=== PATIENT | male | born 1975 | race Two or more races ===

== ENCOUNTER 2018-09-09 09:16 | Emergency (ER) | payer OTHER ==
[~2018-09-09] VITALS: Ht 170.2 cm; Wt 97.5 kg
--- NOTE | 2018-09-09 09:30 | NUR ---
PATIENT BIB [employer]. PATIENT A/O X 4, VERBALLY REPSONSIVE. NO ACUTE DISTRESS. DENIES PAIN OR DISCOMFORT. PATIENT HAS HAS COURT ORDER TODAY, REPORTED TO HAVE EPISODE OF SEIZURE PRIOR TO ER ARRIVAL.
[2018-09-09 09:49] LABS: EOSINOPHILS % (AUTO) 2.4 % (0.0-6.0); HEMATOCRIT 39 % (39-51); HEMOGLOBIN 12.7 g/dL (13.5-17.5); LYMPHOCYTES # (AUTO) 0.8 /CMM (0.8-4.8); LYMPHOCYTES % (AUTO) 31.4 % (20.0-44.0); MEAN CORPUSCULAR HGB CONC 33 g/dl (31.0-36.0); MEAN CORPUSCULAR VOLUME 87 fL (80-96); MONOCYTES # (AUTO) 0.4 /CMM (0.1-1.30); MONOCYTES % (AUTO) 14.3 % (2.0-12.0); NEUTROPHILS # (AUTO) 1.3 /CMM (1.8-8.9); NEUTROPHILS % (AUTO) 50.9 % (43.0-81.0); PLATELET COUNT (AUTO) 285 /CMM (150-450); RED BLOOD CELL COUNT(AUTO) 4.47 MIL/uL (4.5-6.0); WHITE BLOOD COUNT (AUTO) 2.6 K/uL (4.3-11.0)
[2018-09-09 09:56] LABS: CALCIUM, SERUM 8.9 mg/dL (8.5-10.1); CREATININE 1.3 mg/dL (0.6-1.3); POTASSIUM 3.6 mmol/L (3.5-5.1)
[2018-09-09] MEDS ORDERED: LEVETIRACETAM (500MG) 1,000 MG in IV NS 0.9% 100 ML IV ONE (10:00)
[2018-09-09] MEDS ORDERED: LORAZEPAM 1 MG TABLET PO ONE (10:00)
--- NOTE | 2018-09-09 10:00 | NUR ---
ADDENDUM: Intravenous End Time Documentation: Kebelenra 1 gram IVPB: start time:1000 am ; end time: 1100 am : IV site: RFA # 20 Port # 1
--- NOTE | 2018-09-09 10:34 | NUR ---
TEXTEDDR. LI FOR MRI APPROVAL.
[2018-09-09 10:37] LABS: BAND % (MANUAL) 5 % (0.0-5.0); EOSINOPHILS % (MANUAL) 2 % (0-4); LYMPHOCYTES % (MANUAL) 30 % (16-48); MONOCYTES % (MANUAL) 14 % (0-11.0); NEUTROPHILS % (MANUAL) 49 (42-76)
[2018-09-09] MEDS ORDERED: LORAZEPAM 1 MG TABLET ONE (10:59)
[2018-09-09 13:20] VITALS: BP 123/65
--- NOTE | 2018-09-09 13:23 | NUR ---
IV removed. Catheter intact and site benign. Pressure and 4x4 applied to site. No bleeding noted.
== END 2018-09-09 13:27 ==
LOC: ER 09:41
DX: G40.909 Epilepsy, unspecified, not intractable, without status epilepticus (principal); Z98.890 Other specified postprocedural states
CPT/HCPCS: 36415; 70450; 70551; 80048; 82962; 85025; 96365; 99284; J1953; J7030

== ENCOUNTER 2020-09-25 12:20 | Emergency (ER) | payer OTHER ==
[~2020-09-25] VITALS: Ht 170.2 cm; Wt 84.8 kg
--- NOTE | 2020-09-25 12:20 | NUR ---
PT [facility] AND [employer] FROM [facility] C/O SEIZURE EPISODE. 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 WILL CONTINUE TO MONITOR.
[2020-09-25] MEDS ORDERED: LEVETIRACETAM (500MG) 1,000 MG in IV NS 0.9% 100 ML IV SCH (12:30)
--- NOTE | 2020-09-25 12:31 | NUR ---
AT BEDSIDE FOR EVAL.
--- NOTE | 2020-09-25 12:40 | NUR ---
PT IV LINE ESTABLISHED BLOOD DRAWN AND SENT TO LAB.
[2020-09-25 13:05] LABS: BASOPHILS % (AUTO) 1.1 % (0.0-2.0); HEMATOCRIT 37 % (39-51); HEMOGLOBIN 11.7 g/dL (13.5-17.5); LYMPHOCYTES # (AUTO) 1.2 K/uL (0.8-4.8); MEAN CORPUSCULAR HGB CONC 32 g/dl (31.0-36.0); MEAN CORPUSCULAR VOLUME 79 fL (80-96); MONOCYTES # (AUTO) 0.4 K/uL (0.1-1.30); MONOCYTES % (AUTO) 9.1 % (2.0-12.0); NEUTROPHILS # (AUTO) 2.7 K/uL (1.8-8.9); NEUTROPHILS % (AUTO) 60.8 % (43.0-81.0); PLATELET COUNT (AUTO) 341 K/uL (150-450); RED BLOOD CELL COUNT(AUTO) 4.71 MIL/uL (4.5-6.0); WHITE BLOOD COUNT (AUTO) 4.4 K/uL (4.3-11.0)
[2020-09-25 13:55] LABS: ALBUMIN 3.4 g/dL (3.4-5.0); BILIRUBIN,DIRECT 0.2 mg/dL (0.0-0.2); BILIRUBIN,TOTAL 0.7 mg/dL (0.2-1.0); TOTAL PROTEIN, SERUM 7.5 g/dL (6.4-8.2)
[2020-09-25 14:03] LABS: CALCIUM, SERUM 8.7 mg/dL (8.5-10.1); CREATININE 0.9 mg/dL (0.6-1.3)
--- NOTE | 2020-09-25 14:18 | NUR ---
IV removed. Catheter intact and site benign. Pressure and 4x4 applied to site. No bleeding noted. Patient discharged in custody in stable condition. Written and verbal after care instructions given. Patient verbalizes understanding of instruction.
[2020-09-25 14:19] VITALS: BP 125/68
== END 2020-09-25 14:19 ==
LOC: ER 12:32
DX: G40.909 Epilepsy, unspecified, not intractable, without status epilepticus (principal); Z98.890 Other specified postprocedural states
CPT/HCPCS: 36415; 80048; 80076; 85025; 96365; 99284; J1953; J7030